=== PATIENT | female | born 1960 | race Two or more races ===

== ENCOUNTER 2022-06-10 08:35 | Outpatient (CLI) | payer OTHER | END 2022-06-10 08:41 | disposition home or self-care (01) | LOC: NUCLEAR 08:35 | PROVIDERS: ATTEND Internal Medicine | DX: I11.9 Hypertensive heart disease without heart failure (principal); I50.30 Unspecified diastolic (congestive) heart failure; I25.10 Atherosclerotic heart disease of native coronary artery without angina pectoris ==

== ENCOUNTER 2022-08-15 07:06 | Outpatient (CLI) | payer OTHER | END 2022-08-15 07:12 | disposition home or self-care (01) | LOC: NUCLEAR 07:06 | PROVIDERS: ATTEND Internal Medicine | DX: I50.30 Unspecified diastolic (congestive) heart failure (principal) | CPT/HCPCS: 78803; A9538 ==